=== PATIENT | male | born 1980 | race Caucasian/White ===

== ENCOUNTER 2021-01-29 08:18 | Outpatient (CLI) | payer OTHER, SELFPAY | END 2021-01-29 08:19 | disposition home or self-care (01) | LOC: ANHCOVIDVC 08:18 | PROVIDERS: PCP Family Medicine | DX: Z23 Encounter for immunization (principal) | CPT/HCPCS: 0001A; 91300 ==

== ENCOUNTER 2021-02-19 08:16 | Outpatient (CLI) | payer OTHER, SELFPAY | END 2021-02-19 08:17 | disposition home or self-care (01) | LOC: ANHCOVIDVC 08:16 | PROVIDERS: PCP Family Medicine | DX: Z23 Encounter for immunization (principal) | CPT/HCPCS: 0002A; 91300 ==

== ENCOUNTER → 2021-10-19 10:11 | Outpatient (CLI) | payer OTHER, SELFPAY ==
--- NOTE | ~2021-10-19 | XR_ITS ---
EXAMINATION: XR ankle LT min 3V DATE: 10/19/2021 10:27 INDICATION: Left ankle pain. TECHNIQUE: 4 views of left ankle were obtained. COMPARISON: None. FINDINGS: Bone alignment is normal. There is chronic heterotopic ossification distal to medial malleo arielle, likely from old injury. Talar dome is normal. Joint spaces are normal. IMPRESSION: 1. No acute fracture. Reviewed, dictated and finalized at location A. 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 No acute fracture.
== END ==
PROVIDERS: PCP Physician Assistant Medical; Visit Provider Physician Assistant Medical
DX: M25.572 Pain in left ankle and joints of left foot (principal)
CPT/HCPCS: 73610

== ENCOUNTER 2022-04-04 15:07 | Emergency (ER) | payer OTHER, SELFPAY ==
--- NOTE | ~2022-04-04 | XR_ITS ---
EXAM: XR finger 1st LT min 2V HISTORY: cut with knife COMPARISON: None available FINDINGS: Normal mineralization. No fracture or dislocation. No lytic or blastic lesion. Joint space s maintained. No erosion or periosteal change. Subcutaneous emphysema over the anterior soft tissues of the thumb. No radiopaque foreign body. IMPRESSION: No acute osseous finding in the left thumb. 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
--- NOTE | 2022-04-04 15:25 | ED.GENADULT ---
HPI - General Adult General Chief complaint: Extremity Injury, Upper Stated complaint: Thumb Injury Source: patient Mode of arrival: ambulatory Limitations: no limitations History of Present Illness HPI narrative: Patient presents for evaluation of an injury to the left thumb. He indicates he was using X-[employer]o knife just prior to arrival when he cut the thumb. Reports mild pain in the affected area, with a numerical rating more descriptive quality. No paresthesias. No loss of range of motion. He is right-hand dominant. He is not diabetic. He takes a daily ASA 81mg. Related Data Home Medications Medication Instructions Recorded Confirmed lisinopril 5 mg tablet 5 mg PO DAILY 08/21/20 01/19/22 aspirin 81 mg tablet,delayed 81 mg PO DAILY 01/19/22 01/19/22 release multivitamin 1 tablet PO DAILY 01/19/22 01/19/22 omega-3 fatty acids-fish oil 300 1 cap PO DAILY cap 01/19/22 01/19/22 mg-500 mg capsule Allergies Allergy/AdvReac Type Severity Reaction Status Date / Time No Known Allergies Allergy Unknown Verified 01/19/22 10:22 Review of Systems Review of Systems: CONSTITUTIONAL: Denies fever, chills, or sweats. EYES: Denies visual changes, redness, or discharge. ENT: Denies rhinorrhea, congestion, sore throat, or otalgia. CARDIOVASCULAR: Denies chest pain, palpitations, or edema. RESPIRATORY: Denies cough or dyspnea. GASTROINTESTINAL: Denies abdominal pain, nausea, vomiting, or diarrhea. GENITOURINARY: Denies dysuria or hematuria. SKIN: Reports laceration to the left thumb. Denies rash or itching. MUSCULOSKELETAL: Reports left thumb pain. Denies loss of ROM NEUROLOGIC: Denies headache, numbness, dizziness, or weakness. PSYCHIATRIC: Denies anxiety or depression. 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 HEAD: Normocephalic, atraumatic. EYES: PERRLA and EOMI. ENT: Nares clear, no rhinorrhea or epistaxis. Mucous membranes moist. Oropharynx without tonsillar hypertrophy exudate or other lesions. Bilateral TMs pearly beauchamp nonbulging NECK: Supple. No adenopathy or masses. No carotid bruits or JVD CHEST: Clear to auscultation. No respiratory distress. No wheezes rales or rhonchi HEART: Regular rate and rhythm. No murmur heard. Normal peripheral pulses. ABDOMEN: Soft, nontender, nondistended, normal active bowel sounds. EXTREMITIES: Normal range of motion. No edema. SKIN: Approximately 2.5cm linear laceration to dorsal aspect of the left thumb. Wound is actively bleeding. Warm, dry, no rash. NEURO: No focal deficits. Alert and oriented x3. PSYCH: Normal mood and affect. Course Course Emergency Course: This is a 41-year-old male who presented with complaints of laceration to the left thumb. He had no apparent tendon injury. Wound was intact. No foreign body on x-ray. No fracture. He tolerated laceration repair well and will be discharged with keflex. Finger splint applied. He was instructed on wound care. He should follow up with PCP
[2022-04-04 15:35] VITALS: BP 141/104; PULSE 73; RESP 16; TEMP 36.3; O2SAT 100
[2022-04-04] MEDS: TETANUS,DIPHTHERIA,AC PERTUSSIS ADULT (0.5 ML) BOOSTRIX IM (16:04)
== END 2022-04-04 16:07 | disposition home or self-care (01) ==
PROVIDERS: Emergency Provider Nurse Practitioner; PCP Family Medicine
DX: S61.012A Laceration without foreign body of left thumb without damage to nail, initial encounter (principal); W26.0XXA Contact with knife, initial encounter; Z23 Encounter for immunization; I10 Essential (primary) hypertension; Z79.82 Long term (current) use of aspirin
CPT/HCPCS: 12001; 73140; 90471; 90715; 99213; G0463

== ENCOUNTER 2022-12-08 08:29 | Outpatient (CLI) | payer OTHER, SELFPAY ==
[2022-12-08 20:17] LABS: Alanine Aminotransferase 28 U/L (6-50); Albumin Level 4.3 g/dL (3.5-5.1); Alkaline Phosphatase 62 U/L (38-126); Anion Gap 5 mmol/L (8-16); Aspartate Amino Transferase 41 U/L (17-59); Bilirubin,Total 0.7 mg/dL (0.2-1.3); Blood Urea Nitrogen 21 mg/dL (9-20); Calcium 8.7 mg/dL (8.4-10.2); Carbon Dioxide 30 mmol/L (22-30); Chloride 105 mmol/L (98-107); Cholesterol 147 mg/dL (0-200); Estimated Glomerular Filt Rate > 60; Glucose 85 mg/dL (65-110); HDL Direct 53 mg/dL; Potassium 4.1 mmol/L (3.4-5.0); Sodium 140 mmol/L (137-145); Triglycerides 45 mg/dL (<150)
[2022-12-08 20:19] LABS: Hematocrit 45.5 % (42.0-52.0); Hemoglobin 15.3 g/dL (14.0-18.0); Mean Corpuscular HGB Conc 33.6 g/dl (32-36); Mean Corpuscular Hemoglobin 31.2 pg (26-34); Mean Corpuscular Volume 92.9 fl (80-100); Platelet Count Result 194 k/mm3 (150-375); Red Cell Distribution Width 12.7 % (11.5-14.5); White Blood Count 4.9 K/mm3 (4.5-10.0)
[2022-12-08 20:29] LABS: LDL Cholesterol Direct 70 mg/dL
== END 2022-12-08 08:30 | disposition home or self-care (01) ==
LOC: ANHGOSHLAB 08:31
PROVIDERS: Nurse Practitioner; PCP Family Medicine; Visit Provider Internal Medicine Cardiovascular Disease
DX: E78.5 Hyperlipidemia, unspecified (principal)
CPT/HCPCS: 36415; 80053; 80061; 84443; 85027

== ENCOUNTER → 2023-10-05 13:43 | Outpatient (CLI) | payer OTHER, SELFPAY ==
--- NOTE | ~2023-10-05 | XR_ITS ---
EXAM: XR knee LT 3V DATE: 10/05/2023 13:57 HISTORY: M25.562 - Pain in left knee . COMPARISON: None available. FINDINGS: Normal mineralization. No fracture or dislocation. No lytic or blastic lesion. Joint space s are maintained. No erosion or periosteal change. Soft tissues within normal limits. IMPRESSION: No acute osseous finding in the left knee. 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
== END ==
PROVIDERS: PCP Nurse Practitioner; Visit Provider Nurse Practitioner
DX: M25.562 Pain in left knee (principal)
CPT/HCPCS: 73562

== ENCOUNTER 2024-01-17 08:04 | Emergency (ER) | payer OTHER, SELFPAY ==
--- NOTE | ~2024-01-17 | XR_ITS ---
EXAMINATION: XR chest 2V DATE: 01/17/2024 08:32 INDICATION: Cough and wheezing TECHNIQUE: PA and lateral views of the chest are obtained. COMPARISON: None available FINDINGS: The lungs are free of acute opacities. No pleural effusion or pneumothorax. The cardiomedia stinal silhouette is normal. The visualized bones and soft tissues are unremarkable. IMPRESSION: 1. No acute cardiopulmonary abnormality. Reviewed, dictated and finalized at location L. 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
[2024-01-17 08:13] VITALS: BP 135/85; PULSE 75; RESP 16; TEMP 36.8; O2SAT 99
--- NOTE | 2024-01-17 08:35 | ED.GENADULT ---
HPI - General Adult General Chief complaint: Upper Respiratory Infection Stated complaint: cold x 3 weeks Source: patient Mode of arrival: ambulatory Limitations: no limitations History of Present Illness HPI narrative: Patient presents for evaluation of sick symptoms for the last 3 weeks prior symptoms include sinus congestion, postnasal drainage, nonproductive cough, mild shortness of breath. He tested positive for COVID about 3 weeks ago. His symptoms persist. He does not smoke. His also recently had COVID. He has tried taking Sudafed, Mucinex and an [id number] nasal spray without considerable improvement in his symptoms thereafter. Related Data Home Medications Medication Instructions Recorded Confirmed multivitamin 1 tablet PO DAILY 01/19/22 01/11/24 omega-3 fatty acids-fish oil 300 1 cap PO DAILY 01/19/22 01/11/24 mg-500 mg capsule (Fish Oil) lisinopril 5 mg tablet 10 mg PO DAILY 12/14/23 01/11/24 Allergies Allergy/AdvReac Type Severity Reaction Status Date / Time No Known Allergies Allergy Unknown Verified 01/11/24 08:05 Review of Systems Review of Systems: CONSTITUTIONAL: Denies fever, chills, or sweats. EYES: Denies visual changes, redness, or discharge. ENT: Reports sinus congestion and postnasal drainage. Denies sore throat or otalgia. CARDIOVASCULAR: Denies chest pain, palpitations, or edema. RESPIRATORY: Reports cough and shortness of breath. GASTROINTESTINAL: Denies abdominal pain, nausea, vomiting, or diarrhea. GENITOURINARY: Denies dysuria or hematuria. SKIN: Denies rash or itching. MUSCULOSKELETAL: Denies back pain, joint pain, or myalgia. NEUROLOGIC: Reports headache. Denies numbness, dizziness, or weakness. PSYCHIATRIC: Denies anxiety or depression. [facility] Past Medical History Medical History Hypertension Moderate left ankle sprain Retinal vein occlusion of right eye Sprain of deltoid ligament of left ankle Vision changes Surgical History Surgical History No pertinent past surgical history Family History Family History Other Hypertension Social History Social History Smoking status: Never smoker Alcohol intake: current Drinks per week: 1 Substance use: unknown Lack of Transportation: No Lack of Food: Never True Current Housing: I Have Housing Concerned About Future Housing: No Difficulty Paying Gas/Electric Bills: No Difficulty Paying for Meds: No Currently Unemployed: No Education: Master's Degree or Higher Difficulty w/ Childcare or Family Care: No Living arrangements: with family Occupation/Education: occupation 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 HEAD: Normocephalic, atraumatic. EYES: PERRLA and EOMI. ENT: Nares clear, no rhinorrhea or epistaxis. Mucous membranes moist. Oropharynx without tonsillar hypertrophy exudate or other lesions. Bilateral TMs pearly beauchamp nonbulging NECK: Supple. No adenopathy or masses. No carotid bruits or JVD CHEST: Wheezing noted on left side posteriorly. HEART: Regular rate and rhythm. No murmur heard. Normal peripheral pulses. ABDOMEN: Soft, nontender, nondistended, normal active bowel sounds. EXTREMITIES: Normal range of motion. No edema. SKIN: Warm, dry, no rash. NEURO: No focal deficits. Alert and oriented x3. PSYCH: Normal mood and affect. Course Course Emergency Course: This is a 43-year-old male who presented for evaluation of sick symptoms following COVID. He rashid
== END 2024-01-17 08:50 | disposition home or self-care (01) ==
PROVIDERS: Emergency Provider Nurse Practitioner; PCP Family Medicine
DX: J32.9 Chronic sinusitis, unspecified (principal); I10 Essential (primary) hypertension; Z86.16 Personal history of COVID-19
CPT/HCPCS: 71046; 99213; G0463

== ENCOUNTER 2024-01-25 16:30 | Outpatient (CLI) | payer OTHER, SELFPAY ==
--- NOTE | ~2024-01-25 | MR_ITS ---
EXAMINATION: MR knee LT wo con DATE: 01/25/2024 17:11 INDICATION: Left knee pain. TECHNIQUE: Magnetic resonance imaging (MRI) of the left knee was performed without intravenous contra st. Sequences included axial PD-weighted FS FSE, coronal PD-weighted FSE and PD-weighted FS FSE, sagi ttal PD-weighted FSE, and sagittal T2-weighted FS FSE. COMPARISON: Left knee radiographs 10/05/2023 FINDINGS: Medial compartment: Medial meniscus is normal. Medial compartment cartilage is normal. Lateral compartment: Lateral meniscus is normal. Lateral compartment cartilage is normal. Patellofemoral compartment: Patellar cartilage is normal. Trochlear cartilage is normal. Ligaments and tendons: The anterior and posterior cruciate ligaments are normal. There are changes of prior sprains of media l collateral ligament and fibular collateral ligament characterized increased signal intensity. There is mild patellar tendinopathy. Fluid: There is a small knee joint effusion. There is trace fluid in a Wilkes's cyst. There is mild prepatell ar bursitis. IMPRESSION: 1. Small knee joint effusion. 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
== END 2024-01-25 16:31 | disposition home or self-care (01) ==
PROVIDERS: PCP Family Medicine; Visit Provider Orthopaedic Surgery
DX: M25.462 Effusion, left knee (principal)
CPT/HCPCS: 73721